=== PATIENT | female | born 1965 | race American Indian/Alaskan Native ===

== ENCOUNTER 2017-09-26 13:57 | Emergency (ER) | payer OTHER, BC ==
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
[2017-09-26 14:50] VITALS: O2SAT 98
[2017-09-26 15:58] VITALS: BP 129/91; PULSE 75; RESP 20; TEMP 98.3
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
== END 2017-09-26 16:14 | disposition home or self-care (01) ==
LOC: C.ER 13:57
DX: S16.1XXA Strain of muscle, fascia and tendon at neck level, initial encounter (principal); V49.59XA Passenger injured in collision with other motor vehicles in traffic accident, initial encounter; Y92.414 Local residential or business street as the place of occurrence of the external cause; M54.5 Low back pain